=== PATIENT | female | born 1965 | race Caucasian/White ===

== ENCOUNTER 2017-09-04 07:47 | Day surgery (SDC) | payer BC ==
[~2017-09-04 07:47] MED LIST: CALCIUM PO; LEVSOD100 PO; MULVITA PO; VITAMIN C PO; VITAMIN D PO; VITAMIN E PO
== END 2017-09-04 23:05 | disposition home or self-care (01) ==
LOC: MOI US 07:47 → MOI MAM 08:00 → MOI US 08:30
PROC: 07B63ZX Excision of Left Axillary Lymphatic, Percutaneous Approach, Diagnostic (ICD-10-PCS; principal; 2017-09-04)
PROC: 0HBU3ZX Excision of Left Breast, Percutaneous Approach, Diagnostic (ICD-10-PCS; principal; 2017-09-04)
DX: C50.912 Malignant neoplasm of unspecified site of left female breast (principal); C77.3 Secondary and unspecified malignant neoplasm of axilla and upper limb lymph nodes
CPT/HCPCS: 19083; 19084; 38505; 76942; 77065; 88305; 88342; 88360; A4648; G0279